=== PATIENT | female | born 1955 | race Caucasian/White ===

== ENCOUNTER 2017-06-19 17:06 | Emergency (ER) | payer OTHER ==
[~2017-06-19] VITALS: Ht 167.6 cm; Wt 111.1 kg
--- NOTE | ~2017-06-19 | CR72 ---
[facility] A Service of [facility] RADIOLOGY TEXT RESULTS PATIENT: JORGE LERMA LOCATION: [facility] : 57 UNIT #: [id number] AGE: [address]: Matt Garsia MD SEX: F ORDER DR: [id number] [facility] [address] [place], [place] [address] [id number] E MR#: [id number] Acc #: [id number] NAME: JORGE LERMA : 1955 SEX: F STUDY DATE/TIME: 06/19/2017 17:55 UNIT: [facility] ROOM: STUDY DESCRIPTION: CR Chest Single View Portable Attending Physician: Matt Garsia M.D. Referring Physician: Juan Manuel Moulton M.D. Ordering Physician: Matt Garsia M.D. Primary Care Physician: Juan Manuel Moulton M.D. MEDICAL IMAGING REPORT This report is preliminary unless electronic signature is present EXAM Portable chest, 06/19/2017 HISTORY 62-year-old female with shortness of air beginning today. COMPARISON Chest, 06/18/2016 FINDINGS Frontal chest demonstrates clear lungs. No pleural effusion or pneumothorax. Heart size and mediastinum are normal. Pulmonary vasculature normal. IMPRESSION No acute cardiopulmonary findings. Dictated by... Kenneth Rooney M.D. THIS IS AN ELECTRONICALLY VERIFIED REPORT Kenneth Rooney M.D. at 06/20/2017 9:59 AM MALCOLM/graciela TD: 06/20/2017 01:55 JOB #: [id number] MEDICAL IMAGING REPORT Page 1 of 1 COPY
--- NOTE | ~2017-06-19 | EKG ---
PATIENT: JORGE LERMA UNIT #: [id number] Ventricular Rate: 90 BPM Atrial Rate: 90 BPM P-R Interval: 108 ms QRS Duration: 84 ms Q-T Interval: 392 ms QTC Calculation(Bezet): 479 ms P [place]: 106 degrees Calculated R [place]: 1 degrees Calculated T [place]: 132 degrees Diagnosis Line: Sinus rhythm with short NC Diagnosis Line: T wave abnormality, consider lateral ischemia Diagnosis Line: Abnormal ECG Diagnosis Line: When compared with ECG of 18-JUN-2016 17:56, Diagnosis Line: NC interval has decreased Diagnosis Line: T wave amplitude has decreased in Inferior leads Diagnosis Line: Confirmed by ALEX ALEXANDRA MD ([id number]) on Diagnosis Line: 06/20/2017 7:33:15 AM INTERPRETING MD: IBRAHIMA ARANGO
[~2017-06-19 17:06] MED LIST: ACID CONTROL20 MG PO; ALBUTEROL17 GM INH; AMLODIPINE-BEN1 EACH PO; AMOXICILLIN PO; AMOXIL500 M2 PO; ASPIRIN EC81 M1 PO; ASPIRIN81 MG; AZOR 5/20 MG TA1 TAB PO; BACTRIM DS TABL1 TAB PO; BP MED; CHOLESTROL MED; CIPRO PO; COLACE50 MG PO; DOC-Q-LACE100 MG PO; DOCUSATE SODIU100 MG PO; EC-NAPROSYN500 MG PO; ERYTHROMYCIN B500 MG PO; FAMOTIDINE PO; FAMOTIDINE20 M1 PO; FENOFIBRATE145 MG PO; HYDROCHLOROTHIA25 MG PO; HYDROCODON-ACE1 EAC7 PO; IBUPROFEN800 MG PO; KEFLEX PO; LASIX20 MG PO; LEVOTHYROXINE175 MCG PO; LIPITOR40 MG PO; LISINOPRIL; LISINOPRIL20 MG PO; LOPID600 MG PO; LORTAB 5/500 TA1 TA1 PO; NAPROSYN-EC500 M1 PO; NIACIN PO; NORCO 5/325 TAB1 TAB PO; NORVASC PO; OMEGA-31000 M1 PO; PERCOCET5/325 PO; PRAVACHOL; PREDNISONE PO; QVAR7.3 G1 INH; ROBITUSSIN A-C10 ML PO; ROBITUSSIN AC; ROBITUSSIN ALL118 ML PO; SULAR PO; SYMBICORT INH; SYNTHROID; SYNTHROID PO; SYNTHROID0.15 MG PO; TRAMADOL-ACETA1 EACH PO; TRAMADOL-APAP1 EACH PO; VICODIN 5/1 TAB 5/50 PO; VICODIN 5/500 T1 TAB PO; WELCHOL625 MG PO; ZANTAC PO
[2017-06-19 18:43] LABS: BASOPHIL# 0.1 X10e3 (0-0.3); BASOPHIL% 0.7 % (0-2.5); EOSINOPHIL# 0.1 X10e3 (0-0.7); EOSINOPHIL% 0.9 % (0.0-7.0); HEMATOCRIT 41.6 % (35.0-45.0); HEMOGLOBIN 13.5 gm/dL (12.0-16.0); LYMPHOCYTE# 2.1 X10e3 (1.0-3.5); LYMPHOCYTE% 17.5 % (17.0-45.0); MEAN CELL VOLUME 87.3 FL (83-96); MEAN CORPUSCULAR HEMOGLOBIN 28.4 PG (28-34); MEAN CORPUSCULAR HGB CONC 32.6 g/dL (30-36); MEAN PLATELET VOLUME 10.8 FL (6.5-11.5); MONOCYTE# 0.6 X10e3 (0-1.0); MONOCYTE% 5.1 % (3.0-12.0); NEUTROPHIL# 9.1 X10e3 (1.5-7.1); NEUTROPHIL% 75.8 % (40-75); PLATELET COUNT 233 X10e3 (140-420); RED BLOOD COUNT 4.76 X10e (3.90-5.30); RED CELL DISTRIBUTION WIDTH 14.8 % (11.0-15.5)
[2017-06-19 18:44] LABS: DIFF IND NO
[2017-06-19 19:07] LABS: ALBUMIN SERUM 4.6 g/dL (3.5-5.0); BILIRUBIN, DIRECT 0.1 mg/dL (0.0-0.2); BILIRUBIN,INDIRECT 0.9 mg/dL (0.0-0.9); BUN/CREATININE RATIO 15.55; CALCIUM SERUM 9.7 mg/dL (8.4-10.2); CREATININE SERUM 1.8 mg/dL (0.6-1.4); GLOM FILT RATE Estimated 29.9 mL/min (>60); PROTEIN TOTAL SERUM 8.4 g/dL (6.0-8.3)
[2017-06-19 19:12] LABS: POC - CKMB 1.3 ng/mL (0.0-7.9); POC - TROPONIN <0.05 ng/mL (<=0.05)
== END 2017-06-19 20:37 | disposition home or self-care (01) ==
LOC: CED 17:06
PROVIDERS: Emergency Medicine
DX: R55 Syncope and collapse (principal); R06.02 Shortness of breath; E11.9 Type 2 diabetes mellitus without complications; I10 Essential (primary) hypertension; Z79.899 Other long term (current) drug therapy; Z79.82 Long term (current) use of aspirin; Z88.8 Allergy status to other drugs, medicaments and biological substances
CPT/HCPCS: 71010; 80048; 80076; 82553; 83880; 84484; 85025; 87040; 93005; 94640; 96374; 99285; J2930